=== PATIENT | male | born 1965 | race Caucasian/White ===

== ENCOUNTER → 2017-10-06 14:06 | Outpatient (REF) | payer BC, SELFPAY ==
[2017-10-06 14:36] LABS: Microalb ug/mg Crea 23.9 ug/mg Cr
== END ==
LOC: NCHCN 14:06
PROVIDERS: PCP Nurse Practitioner; Visit Provider Nurse Practitioner
DX: E11.9 Type 2 diabetes mellitus without complications (principal)
CPT/HCPCS: 82043; 82570

== ENCOUNTER 2017-11-13 15:37 | Outpatient (CLI) | payer BC, SELFPAY ==
[2017-11-13 18:45] LABS: Hemoglobin A1C 8.4 % (4.5-6.2)
[2017-11-16 17:35] LABS: Fructosamine 372 mcmol/L (200 - 285)
== END 2017-11-13 15:57 ==
PROVIDERS: PCP Nurse Practitioner; Visit Provider Internal Medicine Endocrinology, Diabetes & Metabolism
DX: E11.65 Type 2 diabetes mellitus with hyperglycemia (principal)
CPT/HCPCS: 36415; 82985; 83036

== ENCOUNTER 2018-06-28 15:05 | Outpatient (CLI) | payer BC, SELFPAY ==
[2018-06-28 17:38] LABS: Hemoglobin A1C 9.5 % (4.5-6.2)
[2018-06-29 17:05] LABS: Fructosamine 356 mcmol/L (200 - 285)
== END 2018-06-28 15:25 ==
PROVIDERS: PCP Nurse Practitioner; Visit Provider Internal Medicine Endocrinology, Diabetes & Metabolism
DX: E11.65 Type 2 diabetes mellitus with hyperglycemia (principal)
CPT/HCPCS: 36415; 82985; 83036

== ENCOUNTER 2018-07-08 09:17 | Outpatient (REF) | payer BC, SELFPAY ==
[2018-07-08 13:13] LABS: ALT 28 U/L (12-78); AST 16 U/L (15-37); Alkaline Phosphatase 71 U/L (46-116); Anion Gap 8.6 mmol/L (3-11); BUN 15 mg/dL (7-18); Bilirubin, Total 0.6 mg/dL (0.2-1.0); CO2 27.4 mmol/L (21.0-32.0); CREATININE 0.85 mg/dL (0.70-1.30); Calcium 8.8 mg/dL (8.5-10.1); Chloride 102 mmol/L (98-107); Cholesterol 104 mg/dL (50-200); Glucose 189 mg/dL (70-100); HDL Cholesterol 34 mg/dL (40-60); LDL CHOLESTEROL 54 mg/dL (<100); Potassium 4.5 mmol/L (3.5-5.1); Sodium 138 mmol/L (136-145); Total Protein 6.6 g/dL (6.4-8.2); Triglyceride 91 mg/dL (30-150)
== END 2018-07-08 09:37 ==
LOC: NCHCN 09:17
PROVIDERS: PCP Nurse Practitioner; Visit Provider Nurse Practitioner
DX: E11.9 Type 2 diabetes mellitus without complications (principal); I10 Essential (primary) hypertension; E78.5 Hyperlipidemia, unspecified
CPT/HCPCS: 80053; 80061; 83721

== ENCOUNTER 2018-11-29 15:13 | Outpatient (CLI) | payer BC, SELFPAY ==
[2018-11-29 16:15] LABS: Hemoglobin A1C 8.1 % (4.5-6.2)
[2018-11-30 23:13] LABS: Fructosamine 332 mcmol/L (200 - 285)
== END 2018-11-29 15:33 ==
PROVIDERS: PCP Nurse Practitioner; Visit Provider Internal Medicine Endocrinology, Diabetes & Metabolism
DX: E11.65 Type 2 diabetes mellitus with hyperglycemia (principal)
CPT/HCPCS: 36415; 82985; 83036

== ENCOUNTER 2019-03-24 13:33 | Outpatient (CLI) | payer BC, SELFPAY ==
[2019-03-24 14:12] LABS: Hemoglobin A1C 7.9 % (3.8-5.6)
[2019-03-25 17:02] LABS: Fructosamine 302 mcmol/L (200 - 285)
== END 2019-03-24 13:53 ==
PROVIDERS: PCP Nurse Practitioner; Visit Provider Internal Medicine Endocrinology, Diabetes & Metabolism
DX: E11.65 Type 2 diabetes mellitus with hyperglycemia (principal)
CPT/HCPCS: 36415; 82985; 83036

== ENCOUNTER 2021-03-28 18:34 | Outpatient (REF) | payer BC, SELFPAY ==
[2021-03-28 15:33] LABS: Microalb ug/mg Crea 75.7 ug/mg Cr
[2021-03-28 15:59] LABS: HCT 43.8 % (40.0-50.0); HGB 15.2 g/dL (13.5-17.5); MCH 29.4 pg (27.0-33.0); MCHC 34.7 % (32.0-36.0); MCV 84.7 fL (80-95); MPV 11.9 fL (8.0-11.0); Platelet Count 182 10^3/uL (130-400); RBC 5.17 10^6/uL (4.36-5.78); RDW 11.9 % (11.8-14.1); RDW-SD 36.2 fL; WBC 5.19 10^3/uL (4.4-10.8)
[2021-03-28 16:13] LABS: ALT 34 U/L (16-63); AST 18 U/L (15-37); Albumin 3.7 g/dL (3.4-5.0); Alkaline Phosphatase 69 U/L (46-116); Anion Gap 12.7 mmol/L (3-11); BUN 13 mg/dL (7-18); Bilirubin, Total 0.6 mg/dL (0.2-1.0); CO2 25.3 mmol/L (21.0-32.0); CREATININE 0.8 mg/dL (0.70-1.30); Calcium 8.7 mg/dL (8.5-10.1); Calculated LDL 50 mg/dL (<100); Chloride 102 mmol/L (98-107); Cholesterol 133 mg/dL (<200); Glucose 275 mg/dL (74-106); HDL Cholesterol 42 mg/dL (40-60); Potassium 4.1 mmol/L (3.5-5.1); Sodium 140 mmol/L (136-145); Total Protein 6.3 g/dL (6.4-8.2); Triglyceride 205 mg/dL (<150)
[2021-03-28 18:01] LABS: Hemoglobin A1C 12.2 % (<5.7)
[2021-03-30 15:07] LABS: Fructosamine 594 mcmol/L (200 - 285)
== END 2021-03-28 18:35 | disposition home or self-care (01) ==
LOC: NCHCN 18:34
PROVIDERS: PCP Nurse Practitioner; Visit Provider Nurse Practitioner Family
DX: E11.9 Type 2 diabetes mellitus without complications (principal); R63.4 Abnormal weight loss; I10 Essential (primary) hypertension
CPT/HCPCS: 80053; 80061; 85027; 82043; 82570; 82985; 83036

== ENCOUNTER 2022-04-09 08:52 | Outpatient (CLI) | payer BC, SELFPAY ==
[2022-04-09 09:37] LABS: Anion Gap 9.8 mmol/L (3-11); BUN 18 mg/dL (7-18); CO2 30.2 mmol/L (21.0-32.0); Calcium 9.4 mg/dL (8.5-10.1); Chloride 106 mmol/L (98-107); Estimated GFR 87.24 (mL/min/1.73m2); Glucose 92 mg/dL (74-106); Potassium 3.9 mmol/L (3.5-5.1); Sodium 146 mmol/L (136-145)
[2022-04-09 09:39] LABS: Hemoglobin A1C 10.1 % (<5.7)
[2022-04-09 17:26] LABS: Beta-Hydroxybutyrate <0.1 mmol/L (<0.4)
[2022-04-10 22:35] LABS: C-Peptide 1.9 ng/mL (1.1 - 4.4)
[2022-04-11 13:16] LABS: Fructosamine 426 mcmol/L (200 - 285)
[2022-04-18 11:40] LABS: GAD65 Ab Assay 0.08 nmol/L (<= 0.02)
== END 2022-04-09 08:53 | disposition home or self-care (01) ==
LOC: LBO 08:52
PROVIDERS: PCP Nurse Practitioner Family; Visit Provider Internal Medicine Endocrinology, Diabetes & Metabolism
DX: E11.65 Type 2 diabetes mellitus with hyperglycemia (principal)
CPT/HCPCS: 36415; 80048; 86341; 82010; 82985; 83036; 84681

== ENCOUNTER 2022-04-17 18:33 | Outpatient (REF) | payer BC, SELFPAY ==
[2022-04-17 18:23] LABS: COMMENT (LAB VIEW ONLY) 63.68 mg/dL
[2022-04-17 18:26] LABS: Microalb ug/mg Crea 231.5 ug/mg Cr
== END 2022-04-17 18:34 | disposition home or self-care (01) ==
LOC: NCHCN 18:33
PROVIDERS: PCP Nurse Practitioner Family; Visit Provider Nurse Practitioner Family
DX: E11.8 Type 2 diabetes mellitus with unspecified complications (principal)
CPT/HCPCS: 82043; 82570

== ENCOUNTER 2022-07-09 11:10 | Outpatient (CLI) | payer BC, SELFPAY ==
[2022-07-09 13:20] LABS: Anion Gap 9.2 mmol/L (3-11); BUN 17 mg/dL (7-18); CO2 27.8 mmol/L (21.0-32.0); Calcium 9.1 mg/dL (8.5-10.1); Chloride 107 mmol/L (98-107); Estimated GFR 87.24 (mL/min/1.73m2); Glucose 99 mg/dL (74-106); Potassium 3.8 mmol/L (3.5-5.1); Sodium 144 mmol/L (136-145)
[2022-07-11 09:55] LABS: C-Peptide 0.8 ng/mL (1.1 - 4.4)
== END 2022-07-09 11:11 | disposition home or self-care (01) ==
LOC: LBO 11:10
PROVIDERS: PCP Nurse Practitioner Family; Visit Provider Internal Medicine Endocrinology, Diabetes & Metabolism
DX: E11.65 Type 2 diabetes mellitus with hyperglycemia (principal)
CPT/HCPCS: 36415; 80048; 84681

== ENCOUNTER 2022-09-10 11:22 | Outpatient (CLI) | payer BC, SELFPAY ==
[2022-09-10 12:00] LABS: BUN 16 mg/dL (7-18); CREATININE 0.9 mg/dL (0.70-1.30); Calcium 8.8 mg/dL (8.5-10.1); Chloride 106 mmol/L (98-107); Estimated GFR 98.38 (mL/min/1.73m2); Glucose 118 mg/dL (74-106); Potassium 3.8 mmol/L (3.5-5.1); Sodium 140 mmol/L (136-145)
[2022-09-11 18:29] LABS: Fructosamine 261 mcmol/L (200 - 285)
== END 2022-09-10 11:23 | disposition home or self-care (01) ==
LOC: LBO 11:23
PROVIDERS: PCP Nurse Practitioner Family; Visit Provider Internal Medicine Endocrinology, Diabetes & Metabolism
DX: E11.65 Type 2 diabetes mellitus with hyperglycemia (principal)
CPT/HCPCS: 36415; 80048; 82985; 83036

== ENCOUNTER 2023-01-09 15:07 | Outpatient (CLI) | payer BC, SELFPAY ==
[2023-01-09 11:17] LABS: Hemoglobin A1C 6.8 % (<5.7)
[2023-01-09 11:47] LABS: Anion Gap 7.5 mmol/L (3-11); BUN 13 mg/dL (7-18); CO2 28.5 mmol/L (21.0-32.0); CREATININE 0.9 mg/dL (0.70-1.30); Calcium 8.9 mg/dL (8.5-10.1); Chloride 105 mmol/L (98-107); Estimated GFR 98.38 (mL/min/1.73m2); Glucose 266 mg/dL (74-106); Potassium 4.2 mmol/L (3.5-5.1); Sodium 141 mmol/L (136-145)
[2023-01-09 11:57] LABS: COMMENT (LAB VIEW ONLY) 68.44 mg/dL
[2023-01-09 11:58] LABS: Microalb ug/mg Crea 558.3 ug/mg Cr
[2023-01-11 15:30] LABS: Fructosamine 301 mcmol/L (200 - 285)
== END 2023-01-09 15:08 | disposition home or self-care (01) ==
LOC: LBO 15:09
PROVIDERS: PCP Nurse Practitioner Family; Visit Provider Internal Medicine Endocrinology, Diabetes & Metabolism
DX: E11.65 Type 2 diabetes mellitus with hyperglycemia (principal)
CPT/HCPCS: 36415; 80048; 82043; 82570; 82985; 83036

== ENCOUNTER 2023-01-14 08:18 | Day surgery (SDC) | payer BC, SELFPAY ==
--- NOTE | 2023-01-14 05:26 | W.ANESPRE ---
General Info Date of Service Date Performed: 01/14/23 Height: 5 ft 10 in Weight: 99.564 kg Body Mass Index (BMI): 31.4 Surgical Procedure: Operation Date: 01/14/23 09:50 Proposed Procedure Side Surgeon tala Patel MD Meds Allergies and Home Medications Allergies Allergy/AdvReac Type Severity Reaction Status Date / Time No Known Allergies Allergy Verified 01/14/23 08:44 Home Medication Medication Instructions Recorded amlodipine 2.5 mg tablet 2.5 mg PO DAILY 11/24/17 aspirin 81 mg tablet,delayed 81 mg PO DAILY 11/24/17 release (Adult Aspirin Regimen) atorvastatin 10 mg tablet (Lipitor) 20 mg PO DAILY 11/24/17 hydrochlorothiazide 12.5 mg capsule 25 mg PO DAILY 11/24/17 ramipril 10 mg capsule 10 mg PO BID 11/24/17 insulin degludec 85 unit subcut HS 05/28/22 insulin lispro 12 sliding scale dose subcut 05/28/22 DIRECTED semaglutide 1 mg/dose (2 mg/1.5 1 mg subcut QWEEK 12/26/22 mL) subcutaneous pen injector (TrelliSoftempic) Current Visit Medications: Current Medications Generic Name Dose Route Start Last Admin Trade Name Freq PRN Reason Stop Dose Admin Ringer's Solution 1,000 mls @ 80 mls/hr 01/14/23 06:00 IV 02/12/23 23:59 INFUSION ANJEL IV Miscellaneous Supplies 1 each 01/14/23 06:00 Iv Access IV 02/12/23 23:59 DIRECTED ANJEL Sodium Chloride 0 ml 01/14/23 06:00 Normal Saline Flush 10 Ml Syr IV 02/12/23 23:59 PRN PRN Sodium Chloride 0 ml 01/14/23 06:00 Normal Saline 10 Ml Vial IJ 02/12/23 23:59 DIRECTED PRN Sterile Water 0 ml 01/14/23 06:00 Water,Injection,Sterile 10 Ml Vial IJ 02/12/23 23:59 DIRECTED PRN PFSH Active Problems Active Problems: Problem Status Onset Code Tinnitus of left ear H93.12 Sensorineural hearing loss (SNHL) of both ears H90.3 Medical History Medical History Hyperlipidemia Benign hypertension Diabetes mellitus, type 2 Surgical History Surgical History S/P colonoscopy (~07/23/09) only got to Transverse colon Hyperplastic polyp Leiomyoma of rectum Tobacco Smoking/Tobacco Use Status: Never Alcohol Alcohol Intake: current Alcohol intake frequency: holidays/special occasions only Substance Use Substance use: Never Substance use type: does not use Vital Signs and Lab Results Vital Signs Most Recent Vital Signs in EMR: Temp Pulse Resp BP Pulse Ox 36 C L 82 16 157/93 H 99 01/14/23 09:06 01/14/23 09:06 01/14/23 09:06 01/14/23 09:06 01/14/23 09:06 Lab Results Blood Type / Crossmatch: No Data to Display Complete Blood Count: No Data to Display Complete Metabolic Panel: Sodium 141 mmol/L (136-145) 01/09/23 10:50 Potassium 4.2 mmol/L (3.5-5.1) 01/09/23 10:50 Chloride 105 mmol/L (98-107) 01/09/23 10:50 Carbon Dioxide 28.5 mmol/L (21.0-32.0) 01/09/23 10:50 BUN 13 mg/dL (7-18) 01/09/23 10:50 Creatinine 0.9 mg/dL (0.70-1.30) 01/09/23 10:50 Est GFR (CKD-EPI 2020) 98.38 (mL/min/1.73m2) 01/09/23 10:50 Calcium 8.9 mg/dL (8.5-10.1) 01/09/23 10:50 Glucose 266 mg/dL (74-106) H 01/09/23 10:50 Hemoglobin A1c 6.8 % (<5.7) H 01/09/23 10:50 Liver Function Panel: No Data to Display Coagulation Panel: No Data to Display Cardiac Panel: No Data to Display Arterial Blood Gas: No Data to Display Venous Blood Gas: No Data to Display Pancreas Panel: No Data to Display Thyroid Panel: No Data to Display Infectious Disease: No Data to Display Blood Cultures: No Data to Display Toxicology Panel: No Data to Display Anesthesia Assessment and Plan Anesthesia History Personal History: No History of Anesthesia Complications Family History: No Family History of Anesthesia Complications Exercise Tolerance Exercise Tolerance: Metabolic Equivalents>4 Cardiac & Pulmonary Exam Cardiac Exam: Normal S1/S2 Heart Sounds Pulmonary Exam: Clear Bilateral Breath Sounds Implantable Cardiac Device Does patient have a Pacemaker or an ICD?: No Airway Exam Known Difficult Airway: No Mallampati Class: 4 Mouth Opening: Narrow (< 3cm) Thyromental Distance: Greater than 3 cm Neck Range of Motion: Full ROM Neck Circumference: Normal Teeth Condition: Normal Dentition ASA Classification ASA Score: ASA 2 Emergency Case?: No NPO Status NPO Status: NPO Clears >2 hours, Solids >8 hours Anesthesia Plan Resuscitation Status: Full Code Anesthesia Technique: General Anesthesia Airway Planned: Natural Airway Monitors Used: Standard Monitors Preoperative Comments:: 57 yo male for colo. Sig PMHx: HTN (amlodipine, HCTZ), DM2 (tresiba, lispro, semaglutide), never smoker, occ EtOH.
[2023-01-14] MEDS: Lactated Ringers 1,000 ML 80 ML IV (09:02)
[2023-01-14 09:06] VITALS: BP 157/93; PULSE 82; RESP 16; TEMP 36; O2SAT 99
[2023-01-14 09:13] VITALS: BMI 31.4
--- NOTE | 2023-01-14 09:53 | BOWEL_PTH ---
PATIENT: Mitch Castro LOC: [facility] U#:[id number] AGE/SX: 57/M ROOM: RE01/14/[address]: Timothy Patel : 1965 BED: DIS: 01/14/2023 SPEC #: [id number] RECD: 01/14/23 12:44 STATUS: [facility] #: [id number] HOANG: 01/14/23 09:[address]: Timothy Patel DEPT: Surgical Specimen RECD BY: Radha Goetz ENTERED: 01/14/23 12:45 SP TYPE: Bowel OTHR DR: MAYA FOWLER, M[employer] W[employer]ER Tissues: 1 - BIOPSY BOWEL 2 - BIOPSY BOWEL 3 - BIOPSY BOWEL Procedures: GROSS AND MICRO LEVEL 4 Comments: [id number]
--- NOTE | 2023-01-14 10:13 | W.COLOREPORT ---
Date of service: 01/14/23 Time of Service: 10:13 Colonoscopy Report Procedure: PROCEDURES PERFORMED: 1. Colonoscopy 2. Hot snare polypectomy x 3 PREOPERATIVE DIAGNOSIS: Surveillance colonoscopy, colon Polyps POSTOPERATIVE DIAGNOSIS: Colon polyps, grade 1 internal hemorrhoids SURGEON: Ronel Patel MD INDICATION for procedure: The patient is a 57-year-old man without symptoms due for surveillance colonoscopy. His last colonoscopy had polyps found. No family history of colon cancer. FINDINGS: The terminal ileum was normal. In the proximal transverse colon a 5-7 mm sessile polyp was removed with hot snare technique. Further along in the transverse colon another 5-7 mm sessile polyp was removed with hot snare technique. In the rectum a small pedunculated 3-5 mm polyp was removed with hot snare technique. No diverticular disease seen. The patient does form an alpha loop around the splenic flexure. Grade 1 internal hemorrhoids noted. SURVEILLANCE interval/FOLLOW-UP: 3-10 years pending path results of the polyps. If simple adenomas then 7-10 years. If sessile serrated or villous histology, then 3 years. EBL: Minimal COMPLICATIONS: None QUALITY of prep: Excellent Procedure in detail: The patient gave written consent and was in agreement with the indications, the potential risks as well as the benefits of the procedure. He was taken to the endoscopy suite and laid in the left lateral decubitus position. A timeout was performed and anesthesia was administered which was tolerated well. I started the procedure. Digital rectal and visual examination was performed and grossly within normal limits. A well-lubricated flexible colonoscope was then introduced and passed without any notable difficulty all the way to the cecum identified by the ileocecal valve and the appendiceal orifice. The scope was then slowly withdrawn with the above-noted findings. The patient tolerated the procedure well and was taken to the PACU in hemodynamically stable condition.
--- NOTE | 2023-01-14 10:16 | W.PM.DSUDISC ---
Date of service: 01/14/23 Time of Service: 10:17 Discharge Plan Disposition Patient Disposition: Home Condition: Good Discharge Details Attending Provider: Timothy Patel Primary Care Provider: MAYA FOWLER Home Meds and New Rx's Prescriptions: No Action amlodipine 2.5 mg tablet 2.5 mg PO DAILY aspirin [Adult Aspirin Regimen] 81 mg tablet,delayed release (DR/EC) 81 mg PO DAILY insulin degludec [Tresiba FlexTouch U-100] 85 unit subcut HS insulin lispro [Humalog U-100 Insulin] 12 sliding scale dose subcut DIRECTED Rx Instructions: Sliding scale per pt. states usually 12 units Ozempic 1 mg/dose (2 mg/1.5 mL) pen injector 1 mg subcut QWEEK ramipril 10 mg capsule 10 mg PO BID Rx Instructions: qday atorvastatin [Lipitor] 10 mg tablet 20 mg PO DAILY Rx Instructions: qday hydrochlorothiazide 12.5 mg capsule 25 mg PO DAILY Rx Instructions: qday Discharge Instructions Additional Instructions: FINDINGS: Multiple polyps were removed today. Depending on the type of polyp they are under a microscope, you may need to do another colonoscopy in 3 years. Otherwise it would be 7 to 10 years. Stand Alone Forms: Colonoscopy Post Instructions Activity:: Activity as Tolerated Diet:: As Tolerated
[2023-01-14 10:18] VITALS: BP 139/91; PULSE 83; RESP 16; TEMP 36.5; O2SAT 97
--- NOTE | 2023-01-14 10:21 | W.ANESPOSTOP ---
Postoperative Evaluation Date, Time and Location Date Performed: 01/14/23 Time Performed: 10:21 Patient Location: Day Surgery Unit Vital Signs Most Recent Imported Vital Signs: Most Recent Vital Signs Temp Pulse Resp BP Pulse Ox 36.5 C 83 16 139/91 H 97 01/14/23 10:18 01/14/23 10:18 01/14/23 10:18 01/14/23 10:18 01/14/23 10:18 Pain Score Most Recent Pain Score: Most Recent Pain Score Pain Level 0 01/14/23 10:18 Assessment Mental Status: Awake (Alert & Oriented to Patient Baseline) Airway and Respiratory Function: Patent airway with normal (patient baseline) respiratory exam Cardiovascular Function: Hemodynamically Stable Hydration Status: Adequately Hydrated Nausea & Vomiting: No Nausea or Vomiting Pain: Pt. Denies Any Pain Peripheral Nerve Block: Patient did not receive a nerve block
[2023-01-14 10:45] VITALS: BP 152/94; PULSE 85; RESP 16; TEMP 36.6; O2SAT 97
== END 2023-01-14 08:19 | disposition home or self-care (01) ==
PROVIDERS: PCP Nurse Practitioner Family; Visit Provider Student in an Organized Health Care Education/Training Program
PROC: 0DJD8ZZ Inspection of Lower Intestinal Tract, Via Natural or Artificial Opening Endoscopic (ICD-10-PCS; CPT 45378; principal; 2023-01-14 09:45)
DX: Z12.11 Encounter for screening for malignant neoplasm of colon (principal); D12.8 Benign neoplasm of rectum; K64.0 First degree hemorrhoids; Z86.010 Personal history of colon polyps; I10 Essential (primary) hypertension; E11.9 Type 2 diabetes mellitus without complications; D12.3 Benign neoplasm of transverse colon
CPT/HCPCS: 45385; 00123; 88305; J2001

== ENCOUNTER 2023-04-30 05:48 | Outpatient (CLI) | payer BC, SELFPAY ==
[2023-04-30 14:23] LABS: Hemoglobin A1C 7.6 % (<5.7)
[2023-04-30 14:36] LABS: Calculated LDL 46 mg/dL (<100); Cholesterol 125 mg/dL (<200); HDL Cholesterol 38 mg/dL (40-60); Triglyceride 209 mg/dL (<150)
[2023-04-30 15:00] LABS: Anion Gap 9.2 mmol/L (3-11); BUN 20 mg/dL (7-18); CO2 27.8 mmol/L (21.0-32.0); Calcium 8.6 mg/dL (8.5-10.1); Chloride 108 mmol/L (98-107); Glucose 332 mg/dL (74-106); Potassium 4.7 mmol/L (3.5-5.1); Sodium 145 mmol/L (136-145)
[2023-05-02 09:17] LABS: Fructosamine 270 mcmol/L (200 - 285)
== END 2023-04-30 05:49 | disposition home or self-care (01) ==
LOC: LBO 05:48
PROVIDERS: Internal Medicine Endocrinology, Diabetes & Metabolism; PCP Nurse Practitioner Family; Visit Provider Nurse Practitioner Family
DX: E11.65 Type 2 diabetes mellitus with hyperglycemia (principal); E78.5 Hyperlipidemia, unspecified
CPT/HCPCS: 36415; 80048; 80061; 82985; 83036

== ENCOUNTER 2023-09-16 03:50 | Outpatient (CLI) | payer BC, SELFPAY ==
--- OUTSIDE RECORDS SUMMARY | 2023-09-16 03:52 | XMS_ITS | Data Portability ---
Author Organization [place] - [facility] [place] [address] Care Team Providers Care Boiling Off Winder Name Role Phone MAYA FOWLER Primary Care Provider Assessment No assessment recorded. Plan of Treatment Reminders Order Date Submit Date Provider Last Modified By Organization Details Last Modified Time Details Appointments Follow Up 30 2023 01:30P M Maya Fowler Not available Not available Not available Lab None recorded . Referral None recorded . Procedures None recorded . Surgeries None recorded . Imaging None recorded . Medication Orders None recorded . Patient TargetsNo targets recorded. Patient Instructions Encounter Date Encounter Id Patient Instructions Last Modified By Organization Details Last Modified Time 04/22/2023 [id number] 6 month follow u p. Follow up with endocrinology as scheduled. If blood pressure remains elevated, consider increase amlodipine to 5 mg daily. I will send cholesterol testing labs to [facility] to complete this Thursday. Call with questions. Recommend signing up for the patient portal - email sent to your [place] address. Not available 04/25/2023 10:30:41 Reason for Referral None Reported. Results Created Date Observation Date Name Description Value Unit Range Abnormal Flag LastModifiedBy Organization Detail LastModifiedTime 04/30/19 24 04/30/2023 HEMOG LOBIN A1C hemoglobin A1C 7.6 % <5.7 high Not Available Camron alfonso [address] [place], [address] 04/30/2023 14:47:20 04/30/19 24 04/30/2023 LIPID 2 cholesterol 125 mg/dL <[address] [facility] ([facility]) [address] [place] [address] [place], [address], 04/30/2023 14:49:22 04/30/19 24 04/30/2023 LIPID 2 triglyceride 209 mg/dL <150 high Not Available [facility] ([facility]) [address] [place] [address] [place], [address], 04/30/2023 14:49:22 04/30/19 24 04/30/2023 LIPID 2 HDL cholesterol 38 mg/dL 40-[address] [facility] ([facility]) [address] [place] [address] [place], [address], 04/30/2023 14:49:22 04/30/19 24 04/30/2023 LIPID 2 calculated LDL 46 mg/dL <[address] [facility] ([facility]) [address] [place] [address] [place], [address], 04/30/2023 14:49:22 04/30/19 24 04/30/2023 LASIC METAB OLIC PANEL calcium 8.6 mg/dL 8.5-10 .1 normal Not Available [address] [place], [address] 04/30/2023 15:03:28 04/30/19 24 04/30/2023 LASIC METAB OLIC PANEL glucose 332 mg/dL 74-106 high Not Available [address] [place], [address] 04/30/2023 15:03:28 04/30/19 24 04/30/2023 LASIC METAB OLIC PANEL BUN 20 mg/dL 7-18 high Not Available [facility] [address] [place], [address] 04/30/2023 15:03:28 04/30/19 24 04/30/2023 LASIC METAB OLIC PANEL creatinine 1.0 mg/dL 0.70-1 .30 normal Not Available [address] [place], [address] 04/30/2023 15:03:28 04/30/19 24 04/30/2023 LASIC METAB OLIC PANEL estimated GFR 86.70 mL/min /1.73m 2 Not Available [address] [place], [address] 04/30/2023 15:03:28 04/30/19 24 04/30/2023 LASIC METAB OLIC PANEL sodium 145 mmol/ L 136-14 5 normal Not Available [address] [place], [address] 04/30/2023 15:03:28 04/30/19 24 04/30/2023 LASIC METAB OLIC PANEL potassium 4.7 mmol/ L 3.5-5. 1 normal Not Available [address] [place], [address] 04/30/2023 15:03:28 04/30/19 24 04/30/2023 LASIC METAB OLIC PANEL chloride 108 mmol/ L 98-107 high Not Available [address] [place], [address] 04/30/2023 15:03:28 04/30/19 24 04/30/2023 LASIC METAB OLIC PANEL CO2 27.8 mmol/ L 21.0-3 2.0 normal Not Available [address] [place], [address] 04/30/2023 15:03:28 04/30/19 24 04/30/2023 LASIC METAB OLIC PANEL anion gap 9.2 mmol/ L 3-11 normal Not Available [address] [place], [address] 04/30/2023 15:03:28 04/30/19 24 05/02/2023 FRUCT OSAMI NE fructosamine 270 mcmol /L 200 - 285 Not Available [address] [place], [address] 05/04/2023 08:47:49 04/30/19 24 04/30/2023 HEMOG LOBIN A1C hemoglobin A1C 7.6 % <5.7 high Not Available [address] [place], [address] 05/07/2023 05:11:32 04/30/1904/30/2023 LIPID 2 cholesterol 125 mg/dL <200 Not Available [facility] [place] [address] [facility], [address] 05/07/2023 05:14:32 04/30/19 24 04/30/2023 LIPID 2 triglyceride 209 mg/dL <150 high Not Available [facility] [address] [place] [address] [place], [address] 05/07/2023 05:14:32 04/30/19 24 04/30/2023 LIPID 2 HDL cholesterol 38 mg/dL 40-60 low Not Available Elver polo [place] [address] [facility], [address] 05/07/2023 05:14:32 04/30/19 24 04/30/2023 LIPID 2 calculated LDL 46 mg/dL <100 Not Available Camron alfonso [address] [place], [address] 05/07/2023 05:14:32 Result Notes None recorded. Problems Name Status Onset Date Resolution Date Notes Provider Name and Address Organization Details Recorded Time Hyperlipidemi a Active 2002 GLEN denton [facility], [facility]. 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 4 13:29:51 Essential hypertension Active 2002 GLEN denton [facility]. 4 13:30:03 Seasonal allergic rhinitis Active 2004 GLEN denton [facility] 4 13:30:32 Retinal disorder Active 2009 GLEN denton [facility]. 4 13:30:26 Erectile dysfunction Active 2016 GLEN denton [facility]. 4 13:29:58 Facial nerve disorder Active 2019 GLEN denton [facility]. 4 13:30:10 Abnormal weight loss Completed 202105/26/2021 03/28/2021 - Comments only - Maya PEREZ - Above. Problem Code: R63.4; Problem Code Type: ICD-10; Not Available [facility] 3 05:25:43 Counseling Completed 202105/26/2021 03/28/2021 - Comments only - Maya PEREZ - Reviewed medical history. Reviewed current medications. See below for specifics on medication refills, current care plan. Focus of today's treating diabetes. He is up-to-date with his Covid booster. We will discuss colon cancer screening and subsequent follow-up visit. Problem Code: Z71.89; Problem Code Type: ICD-10; Not Available [facility] 3 05:25:44 Sensorineural hearing loss Active 2021 GLEN denton, [facility]. 4 13:30:41 Tinnitus of left ear Active 2021 GLEN denton, [facility] 4 13:30:49 Adult health examination Completed 202204/22/2023 CHRIS MAGALLANES [address], [place], [address] , [facility] 4 15:18:30 Pain of joint of knee Active 2022 GLEN denton [facility]. 4 13:30:21 Screening for malignant neoplasm of colon Completed 202204/22/2023 CHRIS MAGALLANES [address], [place], [address] , [facility] 4 15:18:24 Pain of left shoulder joint Completed 201604/05/2018 Problem Code: M25.512; Problem Code Type: ICD-10; Not Available [facility] 3 05:25:46 Bilateral hearing loss Completed 202111/05/2022 03/28/2021 - Comments only - Maya Mayur [employer] - Mild bilateral hearing loss. Suspect noise exposure conductive loss. Subjective tinnitus to the left ear. Started in 2019 - see visit notes 05/05/2019, related to facial nerve disorder? Will start with audiology referral and hearing check. Problem Code: H91.93; Problem Code Type: ICD-10; Not Available [facility] 3 05:25:51 Hypertensive disorder Completed 200211/05/2022 Not Available [facility] 3 05:25:51 Type 2 diabetes mellitus without complication Completed 200511/05/2022 06/01/2021 - Comments only - Maya Fowler [employer] - A1c 2 months ago was above 12. Nonfasting blood glucose today was 431 today. Mitch has continued with metformin, glimepiride, and 45 units of Lantus nightly. He does have a continuous blood glucose monitor at home, though did not present with his meter today. He reports blood glucose levels are varying, though unable to provide specifics today. Overall, he does feel symptoms have improved over the past 2 months, including improvement of urinary pattern. Weight is stabilized. Appetite is improved. No longer experiencing nausea and vomiting. Prioritize follow-up with his endocrinologi st. Can help facilitate the process. See instructions below. He was previously well-establis hed with endocrinology , and would like to continue with endocrinology at this time. Reviewed Levemir use, may consider divided dose, may consider increasing up to 50 mg however, he will need to monitor his blood glucose closely. At this time, I was not able to review his home blood glucose levels. Our diabetes team has made several attempts to follow-up with Mitch, without success. Mitch would like to prioritize returning to his endocrinologi st in [place]. Problem Code: E11.9; Problem Code Type: ICD-10; Not Available [facility] 3 05:25:53 Seasonal allergy Completed 200411/05/2022 Not Available [facility] 3 05:25:53 Diabetes mellitus Completed 200511/05/2022 Not Available [facility] 3 05:25:54 Nonproliferat marilu retinopathy due to diabetes mellitus Completed 200911/05/2022 Problem Code: 362.; Problem Code Type: ICD-9; Not Available [facility] 3 05:25:54 Problem Notes None recorded. Medical Equipment None Reported. Allergies Allergen ID Allergen Name Allergen Category Reaction Reaction Severity Criticality Documentation Date Start Date Code Code System Note Provider Name and Address Organization Details Recorded Time house dust mite environme nt Not available Not available Not available 12/19/20222011 Aller gyNam e: 'DUST MITES '; Not Available [facility] 3 16:14:48 Medications Name Sig Start Date Stop Date Status Note LastModified by Organization Details LastModified Time cyclobenz aprine 10 mg tablet 1 q hs 12/26 completed Not Available Not Available Not Available metformin 500 mg tablet Take 2 tablet by mouth twice a day 11/13 completed Not Available Not Available Not Available atorvasta tin 20 mg tablet TAKE ONE TABLET BY MOUTH EVERY EVENING 2023 active Not Available Not Available Not Avai lable FreeStyle Lancets 28 gauge test every day 2011 active Not Available Not Available Not Avai lable Medrol (Vicente) 4 mg tablets in a dose pack 1 TAB DIRECTED 10/20 completed Not Available Not Available Not Available Viagra 50 mg tablet 1 04/22 completed Not Available Not Available Not Available amlodipin e 2.5 mg tablet TAKE ONE TABLET BY MOUTH TWICE A DAY active Not Available Not Available No t Available metformin 1,000 mg tablet 1 tablet by mouth twice a day 07/16 completed RX ENDO Not Available Not Available Not Available glimepiri de 4 mg tablet Take 1 tablet by mouth twice a day 02/19 completed Not Available Not Available Not Available Actos 15 mg tablet 1 qd 04/30 completed Not Available Not Available Not Available aspirin 81 mg tablet Take 1 tablet by mouth once a day 2016 active Not Available Not Available Not Avai lable hydrochlo rothiazid e 25 mg tablet TAKE ONE TABLET BY MOUTH EVERY DAY active Not Available Not Available No t Available Aspir-81 mg tablet,de layed release Take 1 tab by mouth daily 2014 active Not Available Not Available Not Avai lable Viagra 100 mg tablet Take 1 by mouth prior to intercou rse as needed 2013 active Not Available Not Available Not Avai lable naproxen 500 mg tablet 1 bid 04/22 completed Not Available Not Available Not Available ramipril 10 mg capsule TAKE TWO CAPSULES BY MOUTH EVERY DAY 2023 active Not Available Not Available Not Avai lable Novolog FlexPen U-100 Insulin aspart 100 unit/mL (3 mL) subcutane ous Inject 12 unit subcutan eously before each meal active prescrib ed by [facility] endocrin e Not Available Not Available Not Available Levitra 10 mg tablet 1TAB qd 04/22 completed Not Available Not Available Not Available Cialis 10 mg tablet Take 1 tablet by mouth at 1 hour prior to anticipa ting intercou rse prn may increase to 2 tablets/ max dose 24hr 07/16 completed Not Available Not Available Not Available Cialis 20 mg tablet 1 use as needed 04/22 completed Not Available Not Available Not Available Novofine Autocover 30 gauge x 1/3 needle USE 1 PEN NEEDLE UNDER THE SKIN TWO TIMES A DAY 04/24 completed Not Available Not Available Not Available Levemir U-100 Insulin 100 unit/mL subcutane ous solution Inject 50 unit subcutan eously once a day as directed 09/10 completed Not Available Not Available Not Available NovoFine 30 30 gauge x 1/3 needle use to inject insulin twice daily E11.9 2013 active Not Available Not Available Not Avai lable FreeStyle Lite Strips test as directed 2011 active Not Available Not Available Not Avai lable Lantus Solostar U-100 Insulin 100 unit/mL (3 mL) subcutane ous pen Inject 45 unit subcutan eously every night 03/28 completed Not Available Not Available Not Available Lantus Solostar U-100 Insulin q hs 08/18 completed Not Available Not Available Not Available ramipril 10 mg tablet 2TAB qd 2012 active Not Available Not Available Not Avai lable Humalog KwikPen (U-100) Insulin 100 unit/mL subcutane ous INJECT 12 UNITS UNDER THE SKIN THREE TIMES A DAY BEFORE MEALS active Not Available Not Available No t Available Victoza 2-Vicente 0.6 mg/0.1 mL (18 mg/3 mL) subcutane ous pen injector INJECT 1.8MG PER DAY 07/06 completed increase dose from 0.6 mg daily to 1.2 mg daily 7 Not Available Not Available Not Available Levemir FlexTouch U-100 Insulin 100 unit/mL (3 mL) subcutane ous pen INJECT 45 UNITS SUBCUTAN EOUSLY ONCE A DAY DIRECTED 02/19 completed Not Available Not Available Not Available Bydureon 2 mg/0.65 mL subcutane ous pen injector 2 mg by subcutan ous injectio n once a week 2018 active outside provider : endocrin ologist Not Available Not Available Not Available Tresiba FlexTouch U-200 insulin 200 unit/mL (3 mL) subcutane ous pen INJECT 70-80 UNITS UNDER THE SKIN ONCE DAILY; TITRATE DOSE INSTRUCT ED active Not Available Not Available No t Available FreeStyle Precision Akira Strips for use with freestyl e karen meter [address] Hightower Not Available Not Available Not Available BD Julia 2nd Gen Pen Needle 32 gauge x 5/32 USE WITH INSULIN BEFORE EACH MEAL active Not Available Not Available No t Available FreeStyle Karen 2 Sensor kit APPLY 1 KIT DIRECTED AND CHANGE EVERY 14 DAYS DIRECTED OR NEEDED IF SENSOR FALLS OFF PREMATUR BERNADINE active Not Available Not Available No t Available FreeStyle Karen 2 [place] USE ONE DIRECTED active Not Available Not Available No t Available Ozempic 1 mg/dose (4 mg/3 mL) subcutane ous pen injector INJECT 1MG UNDER THE SKIN ONCE WEEKLY 2023 active Not Available Not Available Not Avai lable Mounjaro 5 mg/0.5 mL subcutane ous pen injector INJECT 5MG UNDER THE SKIN ONCE WEEKLY active Not Available Not Available No t Available Mounjaro 2.5 mg/0.5 mL subcutane ous pen injector INJECT 2.5MG UNDER THE SKIN ONCE WEEKLY FOR 4 WEEKS. THEN INCREASE TO 5MG active Not Available Not Available No t Available Ozempic 0.25 mg or 0.5 mg (2 mg/3 mL) subcutane ous pen injector INJECT 0.5MG UNDER THE SKIN ONCE WEEKLY 04/21 completed Not Available Not Available Not Available Vitals Date Recorded Body height Body mass index (BMI) Body weight Body temperature Oxygen saturation Oxygen saturation in Arterial blood by Pulse oximetry Heart rate Systolic blood pressure Diastolic blood pressure Provider Name and Address Organization Details Last Updated DateTime 177.8 cm 31.6 kg/m2 75897.3 2 g 98.4 [degF] 98 % 98 % 90 /min 158 mm[Hg] 91 mm[Hg] Bushra Wilson MA [facility] 14:44:10 Date Recorded Systolic blood pressure Diastolic blood pressure Provider Name and Address Organization Details Last Updated DateTime 04/22/2023 142 mm[Hg] 88 mm[Hg] CHRIS MAGALLANES [address], [place], [address], [facility] 04/22/2023 15:19:16 Social History Question Answer Notes LastModified by Organizat ion Details LastModified Time Tobacco Smoking Status Never Smoker Bushra Wilson MA [facility], [facility] 04/22/2023 14:43:07 Has Tobacco Cessation Counseling Been Provided? No Information not available 04/22/2023 Do You Or Have You Ever Used Any Other Forms Of Tobacco Or Nicotine? No [email or web address] Information not available 04/22/2023 Sex: Male Functional Status None recorded. Mental Status None recorded. Family History Relationship Description Onset Age of this Age Resolved Age Notes Father Family history of malignant neoplasm prostate Mother Family history of malignant neoplasm brain tumor Mother Family history of diabetes mellitus type 1 Brother Family history of diabetes mellitus type 1 Maternal Grandfather Family history of diabetes mellitus type 1 Sister Family history of diabetes mellitus type 1 Sister Family history of breast cancer 1 gene mutation Notes:*Problem: Family Histo ry of: Other: Family history of prostate cancer, lymphoma. CAD mother's side. DM 2 grandfather, mother, sister. Sisters: Breast Cancer, Eye Cancer, Mother, brain tumor Medical History No medical history recorded. Immunizations Vaccine Type Date Status Provider Name and Address Organization Details Recorded Time Td (adult), 2 Lf tetanus toxoid, preservative free, adsorbed 07/06/2018 completed Not Available [facility] 12/19/2022 06:18:57 Tdap 08/01/2008 completed Not Available [facility] 06:18:57 Novel [id number], all formulations 02/14/2009 completed Not Available [facility] 12/19/2022 06:18:57 Td(adult) unspecified formulation 10/07/2001 completed Not Available [facility] 12/19/2022 06:18:57 Influenza, split virus, trivalent, preservative 01/24/2016 completed Not Available [facility] 12/19/2022 06:18:57 Influenza, split virus, quadrivalent, PF 12/28/2018 completed Not Available [facility] 12/19/2022 06:18:57 Influenza, split virus, quadrivalent, preservative 01/05/2017 completed Not Available [facility] 12/19/2022 06:18:57 zoster recombinant 07/16/2022 completed Not Available [facility] 12/19/2022 06:18:58 Pneumococcal conjugate PCV20, polysaccharide [id number] conjugate, adjuvant, PF 07/16/2022 completed Not Available [facility] 12/19/2022 06:18:58 pneumococcal polysaccharide PPV23 11/15/2002 completed Not Available [facility] 2022 06:18:58 influenza, unspecified formulation 10/14/2013 completed Not Available [facility] 12/19/2022 06:18:58 influenza, unspecified formulation 11/01/2009 completed Not Available [facility] 12/19/2022 06:18:58 influenza, unspecified formulation 11/09/2008 completed Not Available [facility] 12/19/2022 06:18:58 influenza, unspecified formulation 11/11/2007 completed Not Available [facility] 12/19/2022 06:18:58 influenza, unspecified formulation 11/20/2011 completed Not Available [facility] 12/19/2022 06:18:58 influenza, unspecified formulation 12/02/2012 completed Not Available [facility] 12/19/2022 06:18:58 influenza, unspecified formulation 01/08/2006 completed Not Available [facility] 12/19/2022 06:18:58 zoster recombinant 10/14/2022 completed Not Available [facility] 02/20/2023 05:31:47 Past Encounters Encounter ID Performer Location Encounter Start Date Encounter Closed Date Diagnosis/Indication Diagnosis SNOMED-CT Code [id number] CHRIS MAGALLANES [facility] [address] [place] [address] 04/22/2023 14:22:10 04/22/2023 15:21:28 Disorder due to type 2 diabetes mellitus 138382062 Essential hypertension 41045102 Hyperlipidemia 43790088 Health Concerns Section Related Observation LastModified by Organization Detai ls LastModified Time None Recorded Concern Status LastModified by Organization Details LastModified Time None Recorded Advance Directives Directive None Recorded Payers Encounter Date Sequence Insurance Name Policy Number Policy Golden Covered Member ID Golden Member ID Guarantor Name 04/22/2023 1 [place] [employer] [place] [facility] (MEDICARE SUPPLEMENT) Mitch Castro [id number] Mitch Castro Notes Date Note Type Note Provider Name and Address Organization Details Recorded Time 04/22/2023 text/html HPI Notes: Mitch presents to [facility] today for routine chronic care follow-up. Medical history includes diabetes and hypertension. 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 Recent colonoscopy, 7-year recall. CHRIS MAGALLANES [address], [place], [address], [place] [facility]. 04/25/2023 10:32:27
--- OUTSIDE RECORDS SUMMARY | 2023-09-16 03:52 | XMS_ITS | Encounter Summary ---
Author Organization [facility] Address [address] [place] [address] Care Team Providers Care Customer Retention Specialist Name Role Phone Unknown, Provider Primary Care Provider [phone] Encounter Details Date Type Department Care Team ([facility] st Contact Info) Description 01/14/2023 Lab Requisition [facility] Pathology & Laboratory Medicine - [facility] [address] [place] [address] Timothy Patel MD [address] [place] [id number] Encounter for other general examination Social History Tobacco Use Types Packs/Day Years Used Date Smoking Tobacco: Never Assessed Sex and Gender Information Value Date Recorded Sex Assigned at Not on file Gender Identity Not on file Sexual Orientation Not on file documented as of this encounter Plan of Treatment Not on file documented as of this encounter Procedures Procedure Name Priority Date/Time Associated Diagnosis Comments SURGICAL PATHOLOGY Today 01/14/2023 9: 53 EST Encounter for other general examination documented in this encounter Results * SURGICAL PATHOLOGY (01/14/2023 9:53 EST) Note to Patient The following pathology results have been interpreted by your pathologist and may be available to you before your health provider has had the opportunity to review them. Please allow time for your provider to receive these results and explore management options, if applicable. 01/16/2023 18:36 EST [facility] Final Diagnosis A. COLON, TRANSVERSE, POLYP, BIOPSY: - Fragments tubular adenoma. - Deeper levels have been examined. B. COLON, TRANSVERSE, POLYP, BIOPSY: - Tubular adenoma.. C. RECTUM, POLYP, BIOPSY: - Tubular adenoma. - Deeper levels have been examined. 01/16/2023 18:36 [facility] Attestation By the signature below, the attending physician certifies that they have 1) personally conducted a gross and/or microscopic examination of the described specimen(s), and/or personally interpreted the results of laboratory testing of the described specimen(s), and 2) personally rendered or confirmed the above diagnosis. 01/16/2023 18:36 [facility] at 1836 Clinical History HX polyps 01/16/2023 18:36 [facility] Gross Description A. Received in formalin labelled with proper patient identification (initials F, J) and transverse colon polyp are 11 soft tissue fragments (0.1 x 0.1 x 0.1 cm to 0.9 x 0.1 x 0.1 cm). Entirely submitted in A1-A3. B. Received in formalin labelled with proper patient identification (initials F, J) and transverse colon polyp are several rubbery sanchez-brown tissue fragments (0.2 x 0 1 x 0.1 cm to 0.6 x 0.3 x 0.1 cm). Entirely submitted in B1. C. Received in formalin labelled with proper patient identification (initials F, J) and rectal polyp is a single rubbery sanchez and focally brown speckled tissue fragment (1.9 x 0.3 x 0.2 cm). Entirely submitted in C1. Cee Vera 01/15/2023 8:55 01/16/2023 18:36 [facility] Performing Lab [facility] 01/16/2023 18:36 [facility] Scanned Images 01/16/2023 18:36 [facility] Tissue SPECIMEN FROM RECTUM / Unknown 01/14/2023 9:53 EST 01/14/2023 16:36 EST Tissue specimen (specimen) TRANSVERSE COLON STRUCTURE / Unknown 01/14/2023 9:53 EST 01/14/2023 16:36 EST Tissue specimen (specimen) SPECIMEN FROM RECTUM / Unknown 01/14/2023 9:53 EST 01/14/2023 16:36 EST Timothy Patel MD PATHOLOGY ORDERABLES [facility] [address] [place] [address] documented in this encounter Visit Diagnoses Diagnosis Encounter for other general examination documented in this encounter Care Teams Customer Retention Specialist Relationship Specialty Start Date End Date Unknown, Provider, PCP - General 07/23/09 documented as of this encounter
--- OUTSIDE RECORDS SUMMARY | 2023-09-16 03:52 | XMS_ITS | Encounter Summary ---
Author Organization [facility] Address [address] [place] [address] Care Team Providers Care Artificial Intelligence Specialist Name Role Phone Unknown, Provider Primary Care Provider [phone] Encounter Details Date Type Department Care Team ([facility] st Contact Info) Description 04/09/2022 Lab Requisition [facility] Pathology & Laboratory Medicine - [facility] [address] [place] [address] Outr Resulting Lab, Provider Social History Tobacco Use Types Packs/Day Years Used Date Smoking Tobacco: Never Assessed Sex and Gender Information Value Date Recorded Sex Assigned at Not on file Gender Identity Not on file Sexual Orientation Not on file documented as of this encounter Plan of Treatment Not on file documented as of this encounter Procedures Procedure Name Priority Date/Time Associated Diagnosis Comments BETA HYDROXYBUTYRATE Routine 04/09/2022 9:07 EST documented in this encounter Results * BETA HYDROXYBUTYRATE (04/09/2022 9:07 EST) Beta Hydroxybutyrate <0.1 <0.4 mmol/L 04/09/2022 17:20 EST [facility] Blood VENOUS BLOOD / Unknown 04/09/2022 9:07 EST 04/09/2022 16:50 EST Provider Outr Resulting Lab CHEMISTRY & BLOOD GAS ORDERABLES [facility] [address] [place] [address] documented in this encounter Visit Diagnoses Not on filedocumented in this encounter Care Teams Artificial Intelligence Specialist Relationship Specialty Start Date End Date Unknown, Provider, PCP - General 07/23/09 documented as of this encounter
--- OUTSIDE RECORDS SUMMARY | 2023-09-16 03:52 | XMS_ITS | Encounter Summary ---
Author Organization [facility] [place] [address] Care Team Providers Care Medical Receptionist Biller Name Role Phone Claudia Johnson RAHUL Primary Care Provider [phone] Reason for Visit * Reason Comments Diabetes Encounter Details Date Type Department Care Team (Late st Contact Info) Description 12/02/2012 3:00 PM EDT Office [place] [address] [address] [facility] [place] [address] Type II or unspecified type diabetes mellitus without mention of complication, uncontrolled (Primary Dx) Discharge Disposition: Home Social History Tobacco Use Types Packs/Day Years Used Date Smoking Tobacco: Never Smokeless Tobacco: Never Sex and Gender Information Value Date Recorded Sex Assigned at Not on file Gender Identity Not on file Sexual Orientation Not on file documented as of this encounter Last Filed Vital Signs Vital Sign Reading Time Taken Comments Blood Pressure 143/97 12/02/2012 3:03 PM EDT Pulse 93 12/02/2012 3:03 PM EDT Temperature - - Respiratory Rate - - Oxygen Saturation - - Inhaled Oxygen Concentration - - Weight 104.2 kg (229 lb 12.8 oz) 12/02/2012 3:03 PM EDT Height - - Body Mass Index - - documented in this encounter Patient Instructions * Patient Instructions* Beatrice Celestin APRN - 12/02/2012 3:39 PM EDT Will consider stopping onglyza and using victoza Added glimepiride 4mg before breakfast and evening meals Take 1/2 (2mg) if glucose is under 100 Omit if glucose is under 90 (and not about to eat carbohydrates) Daily physical activity Attempt to lose 5-10 lbs documented in this encounter Progress Notes * Beatrice Celestin APRN - 12/02/2012 3:53 PM EDT DATE OF VISIT: 12/02/2012 REASON FOR VISIT: New patient to endocrinology for type 2 DM, recently in poor control. Also, follow up hypertension, close to goal; hyperlipidemia; and overweight. BRIEF HISTORY: Presents and states the hardest part of having diabetes is doing what I need to do every day. DATE OF DIAGNOSIS OF DIABETES: Approximately 2006 at time of routine lab for his job. FAMILY HISTORY: Maternal grandfather had DM. Father in his 80's, had cancer. Mother is alive, has Alzheimer's. Sister had gestational diabetes. PREVENTION STRATEGIES: He does take a statin and an ISREAL inhibitor, does have an annual dilated eye exam, will check when his last dentist appointment was. REVIEW OF SYSTEMS: Depression and Mood: Discusses some higher stress at times with fatherhood and with his two jobs. Eyes: No recent vision changes. No headaches, no chest pain, no shortness of breath. No GI symptoms. Appetite is very good. Sleep pattern is good. Skin: No rashes, no sores. Extremities are okay. DIABETES REGIMEN: Lantus SoloSTAR pen 65 units in p.m., Glucophage 1000 mg twice a day, Onglyza 5 mg daily. PHYSICAL EXAMINATION: Appearance: He appears in excellent health. He is overweight, 229 pounds, he states he has gained 15 pounds since this summer; blood pressure 143/97. Eyes: No retinopathy by green light exam. Neck: No thyromegaly or lymphadenopathy. Heart: Regular rate and rhythm, no murmurs. Lungs: Clear to auscultation. Feet: He declines a foot exam today in order to have time to group home counselor regarding regimen changes. LABORATORY DATA: He states hemoglobin A1c 8.2% approximately two months ago at PCP office. SBGM: Has not been checking glucose levels. IMPRESSION AND PLAN: Diabetes mellitus type 2, in fair/poor overall control with recent weight gain. Discussed stopping Onglyza and using Victoza. Discussed stopping present regimen and using mix insulin with Glucophage or continuing what he is already doing and adding glimepiride. Will add glimepiride 4 mg before breakfast and before evening meal to his present regimen. He will omit glimepiride if glucose levels are under 90; and he will only take half a dose, 2-mg tablet if glucose levels are under 100. He states he is determined to try to lose the 15 pounds that he has gained. He states he is somewhat of an emotional eater. We reviewed his 24-hour meal plan. Breakfast is cereal or toast. Lunch, he often has crackers or nuts. Evening meal is pork chop, potato, and vegetable. Evening snack is an apple. 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 At home are his three children and his . IMMUNIZATION UPDATE: Flu vaccine given by Braulio Koo LPN. He is going to return to endocrinology if hemoglobin A1c is not closer to 7.0%. This was a 42-minute office visit with 41 minutes spent counseling face to face with the patient in the management of glucose levels, discussing the available diabetes regimen options, reviewing a healthy meal plan with suggestions for weight loss, he is going to try to eat smaller portions and less calories daily, and he is going to check glucose levels at least once a day either before breakfast or before evening meal. documented in this encounter Plan of Treatment Not on file documented as of this encounter Visit Diagnoses Diagnosis Type II or unspecified type diabetes mellitus without mention of complication, uncontrolled- Primary documented in this encounter Care Teams Medical Receptionist Biller Relationship Specialty Start Date End Date Claudia Johnson APRN [facility] [address] [place] [address] PCP - General 01/01/10 documented as of this encounter
--- OUTSIDE RECORDS SUMMARY | 2023-09-16 03:52 | XMS_ITS | Clinical Summary ---
Author Organization [facility] Address [facility] [place] [address] Care Team Providers Care Credit Card Associate Name Role Phone Claudia Johnson RAHUL Primary Care Provider [phone] Allergies No known active allergies Medications Medication Sig Dispensed Refills Start Date End Date Status ramipril (ALTACE) 10 mg capsule 05/28/2006 Active hydrochlorothiazid e (HYDRODIURIL) 25 mg tablet 05/28/2006 Active Mometasone (NASONEX) 50 mcg/Actuation [employer] 05/28/2006 Active sildenafil (VIAGRA) 50 mg tablet 05/28/2006 Active cetirizine (ZYRTEC) 10 mg tablet 05/28/2006 Active metFORMIN (GLUCOPHAGE) 500 mg tablet Take 1,000 mg by mouth 2 times daily (with meals). Active Saxagliptin (ONGLYZA) 5 mg Tab Take 5 mg by mouth daily. Active amlodipine (NORVASC) 2.5 mg tablet Take 2.5 mg by mouth daily. Active atorvastatin (LIPITOR) 10 mg tablet Take 10 mg by mouth daily. Active insulin glargine (LANTUS SOLOSTAR) pen injection Inject 45-65 Units subcutaneously nightly. Active aspirin 81 mg EC tablet Take 81 mg by mouth daily. Active Active Problems Problem Noted Date Diagnosed Date Type II or unspecified type diabetes mellitus without mention of complication, uncontrolled 12/02/2012 Hypertension 12/02/2012 Hyperlipidemia 12/02/2012 Immunizations Name Administration Dates Next Due Influenza PF, Split 12/02/2012 Family History Medical History Relation Comments Cancer Father Diabetes Maternal Grandfather Relation Status Comments Father Maternal Grandfather Mother Alive Sister Alive Social History Tobacco Use Types Packs/Day Years Used Date Smoking Tobacco: Never Smokeless Tobacco: Never Sex and Gender Information Value Date Recorded Sex Assigned at Not on file Gender Identity Not on file Sexual Orientation Not on file Last Filed Vital Signs Vital Sign Reading Time Taken Comments Blood Pressure 143/97 12/02/2012 3:03 PM EDT Pulse 93 12/02/2012 3:03 PM EDT Temperature - - Respiratory Rate - - Oxygen Saturation - - Inhaled Oxygen Concentration - - Weight 104.2 kg (229 lb 12.8 oz) 12/02/2012 3:03 PM EDT Height - - Body Mass Index - - Plan of Treatment Health Maintenance Due Date Last Done Comments CT Colonography 1965 Colonoscopy 1965 Colorectal Cancer Screening 1965 FIT DNA 1965 FIT 1965 Sigmoidoscopy (10 year) with FIT yearly 1965 Sigmoidoscopy 1965 HIV screen 07/18/1981 Hepatitis C Screening 07/18/1981 Lipid Screening 07/18/1981 Tdap adult 07/18/1982 Tetanus vaccine 07/18/1982 Zoster vaccine (1 of 2) 07/18/2013 Advance Directive 07/18/2018 Covid-19 Vaccine (1 - 2022-24 season) 2022 Influenza (Flu) vaccine (1 o f 1 - Influenza standard series) 10/11/2023 12/02/2012 Care Teams Credit Card Associate Relationship Specialty Start Date End Date Claudia Johnson APRN [facility] [address] [place] [address] PCP - General 01/01/10
--- OUTSIDE RECORDS SUMMARY | 2023-09-16 03:52 | XMS_ITS | Encounter Summary ---
Author Organization [facility] Address [address] [place] [address] Care Team Providers Care Preparatory Technician Name Role Phone Unknown, Provider Primary Care Provider [phone] Encounter Details Date Type Department Care Team ([facility] st Contact Info) Description 07/23/2009 Results Only [facility] Laboratory Services - [facility] ([facility]) [address], [place] [address] Jake Vasquez MD [address] [place] [address] Social History Tobacco Use Types Packs/Day Years Used Date Smoking Tobacco: Never Assessed Sex and Gender Information Value Date Recorded Sex Assigned at Not on file Gender Identity Not on file Sexual Orientation Not on file documented as of this encounter Plan of Treatment Not on file documented as of this encounter Procedures Procedure Name Priority Date/Time Associated Diagnosis Comments SURGICAL PATHOLOGY Routine 07/23/2009 0:00 EDT documented in this encounter Results * SURGICAL PATHOLOGY (07/23/2009 0:00 EDT) Pathology Report: SURGICAL PATHOLOGY REPORT ? Reports generated via electronic interface contain original data; ? however they are lacking the format of the original report. ? Caution should be taken when reading/interpreti ng unformatted reports. ? Name: ? MANDO SNYDER ? Accession #: ? [id number] ? : ? 1965 (Age: 44) ??M ? Collect Date: ? 07/23/2009 ? Location: ? [facility] ? Receive Date: ? 07/23/2009 ? Provider: JAKE VASQUEZ MD ? Copy to: ELISA W [employer] RESEARCH ASSOCIATE QUALITY CONTROL QC ? Final Pathologic Diagnosis: ? A. ?Colon, sigmoid, polyp, biopsy: ? 1. ?Hyperplastic polyp. ? B. ?Rectum, polyp, biopsy: ? 1. ?Leiomyoma. ? Document reviewed and electronically signed by: ? VIKRAM POLANCO MD ? Report ??Date: 07/26/2009 09:20 ? By the signature above, the attending physician certifies that he/she has ? personally conducted a gross and/or microscopic examination of the described ? specimens and rendered or confirmed the above diagnosis. ? Specimen(s) Received: ? A. ?Sigmoid polyp 40 cm ? B. ? Rectal polyp ? Clinical History: ? Rectal bleeding ? Gross Description: ? Received in [facility] labelled Mando Snyder and sigmoid polyp 40 cm is a sanchez-pink, polypoid tissue measuring 0.2 x 0.2 x 0.2 cm. ??The specimen is ?? submitted entirely as (A). ? Received in [facility] labelled Mando Synder and rectal polyp are two ? sanchez-pink tissues measuring 0.2 x 0.2 x 0.2 cm and 0.3 x 0.2 x 0.2 cm. ??The ? specimens are submitted entirely as (B). ??(Sheri De León/garrett ? End of Report ? [facility] 07/23/2009 07/23/2009 8:1 5 EDT Jake Vasquez MD PATHOLOGY ORDERABLE S [facility] [address] [place] [address] documented in this encounter Visit Diagnoses Not on filedocumented in this encounter Care Teams Preparatory Technician Relationship Specialty Start Date End Date Unknown, Provider, PCP - General 07/23/09 documented as of this encounter
--- OUTSIDE RECORDS SUMMARY | 2023-09-16 03:52 | XMS_ITS | Clinical Summary ---
Author Organization [facility] Address [address] [place] [address] Care Team Providers Care Wireless Cellular Technician Name Role Phone Unknown, Provider Primary Care Provider [phone] Social History Tobacco Use Types Packs/Day Years Used Date Smoking Tobacco: Never Assessed Sex and Gender Information Value Date Recorded Sex Assigned at Not on file Gender Identity Not on file Sexual Orientation Not on file Plan of Treatment Health Maintenance Due Date Last Done Comments Hepatitis C Screen 1965 Hepatitis B Vaccine (1 of 3 - 19+ 3-dose series) 07/18 COVID-19 Vaccine ( season) 2022 Care Teams Wireless Cellular Technician Relationship Specialty Start Date End Date Unknown, Provider, PCP - General 07/23/09
--- OUTSIDE RECORDS SUMMARY | 2023-09-16 03:52 | XMS_ITS | Referral Summary ---
Author Organization [facility] Address [address] [place] [address] Care Team Providers Care Assistant Construction Superintendent Name Role Phone Unknown, Provider Primary Care Provider [phone] Social History Tobacco Use Types Packs/Day Years Used Date Smoking Tobacco: Never Assessed Sex and Gender Information Value Date Recorded Sex Assigned at Not on file Gender Identity Not on file Sexual Orientation Not on file Plan of Treatment Not on file Care Teams Assistant Construction Superintendent Relationship Specialty Start Date End Date Unknown, ProviderMD PCP - General 07/23/09
[2023-09-16 15:14] LABS: Anion Gap 9.7 mmol/L (3-11); BUN 13 mg/dL (7-18); CO2 26.3 mmol/L (21.0-32.0); CREATININE 1.1 mg/dL (0.70-1.30); Calcium 8.8 mg/dL (8.5-10.1); Chloride 107 mmol/L (98-107); Estimated GFR 76.85 (mL/min/1.73m2); Glucose 167 mg/dL (74-106); Potassium 4.1 mmol/L (3.5-5.1); Sodium 143 mmol/L (136-145)
[2023-09-16 15:33] LABS: COMMENT (LAB VIEW ONLY) 205.66 mg/dL
[2023-09-16 15:45] LABS: Microalb ug/mg Crea 409.4 ug/mg Cr
[2023-09-17 11:49] LABS: Hemoglobin A1C 6.9 % (<5.7)
== END 2023-09-16 03:51 | disposition home or self-care (01) ==
LOC: LBO 03:50
PROVIDERS: PCP Nurse Practitioner Family; Visit Provider Internal Medicine Endocrinology, Diabetes & Metabolism
DX: E11.65 Type 2 diabetes mellitus with hyperglycemia (principal); H35.00 Unspecified background retinopathy; N52.9 Male erectile dysfunction, unspecified; E78.5 Hyperlipidemia, unspecified
CPT/HCPCS: 36415; 80048; 82043; 82570; 83036

== ENCOUNTER 2024-01-12 12:41 | Outpatient (CLI) | payer BC, SELFPAY ==
[2024-01-12 13:11] LABS: Anion Gap 8.2 mmol/L (3-11); BUN 15 mg/dL (7-18); CO2 28.8 mmol/L (21.0-32.0); CREATININE 1.1 mg/dL (0.70-1.30); Chloride 109 mmol/L (98-107); Estimated GFR 76.85 (mL/min/1.73m2); Glucose 191 mg/dL (74-106); Potassium 4.6 mmol/L (3.5-5.1); Sodium 146 mmol/L (136-145)
[2024-01-12 13:12] LABS: COMMENT (LAB VIEW ONLY) 93.23 mg/dL; Microalb ug/mg Crea 391.5 ug/mg Cr
[2024-01-12 13:16] LABS: Hemoglobin A1C 6.9 % (<5.7)
== END 2024-01-12 12:42 | disposition home or self-care (01) ==
LOC: LBO 12:42
PROVIDERS: PCP Nurse Practitioner Family; Visit Provider Internal Medicine Endocrinology, Diabetes & Metabolism
DX: E11.65 Type 2 diabetes mellitus with hyperglycemia (principal); H35.00 Unspecified background retinopathy; N52.9 Male erectile dysfunction, unspecified; E78.5 Hyperlipidemia, unspecified; E11.21 Type 2 diabetes mellitus with diabetic nephropathy
CPT/HCPCS: 36415; 80048; 82043; 82570; 83036

== ENCOUNTER 2024-03-30 01:30 | Outpatient (CLI) | payer BC, SELFPAY ==
--- NOTE | 2024-03-30 | DI.RAD_ITS ---
Exam(s) XR SHOULDER RT COMPLETE 2+V EXAM: XR SHOULDER RT COMPLETE 2+V CLINICAL HISTORY: STRAIN ROTATOR CUFF OF SHOULDER,S76,011A,CHRONIC RT SHOULDER PAIN,S/P. TECHNIQUE: 2D digital imaging was performed of the right shoulder. Five images were obtained. AP, Grashey, Y-view and axillary views were obtained. COMPARISON: No exams were available for comparison FINDINGS: BONES: No acute fracture is present. No bony destructive lesion is seen. JOINTS: No dislocation present. There is a small spur at the inferior aspect of the acromion at the a cromioclavicular joint. The glenohumeral joint is well maintained. SOFT TISSUE: Normal. IMPRESSION: Small inferior acromial spur. DATA REPOSITORY: RADIATION DOSE DELIVERED:
--- NOTE | 2024-03-30 | DI.RAD_ITS ---
Exam(s) XR HIP PELVIS ADULT BL EXAM: XR HIP PELVIS ADULT BL CLINICAL HISTORY: STRAIN OF FLEXOR MUSCLE,RT HIP PAIN,M25.551,LT HIP PAIN, M25.552. TECHNIQUE: 2D digital imaging was performed of the pelvis and bilateral hips. Five images were obta ined. AP pelvis and lateral views of both hips were obtained. COMPARISON: CT ABD PELVIS WITH CONTRAST from 08/03/2009 FINDINGS: BONES: No acute fracture is present. No bony destructive lesion is seen. JOINTS: No dislocation present. There is prominence of the superior acetabuli bilaterally which can b e seen with PITA. There is also mild narrowing of the superior joint space of the hips, left greater than right. The sacroiliac joints and symphysis pubis are unremarkable. SOFT TISSUE: Normal. IMPRESSION: Prominence of the acetabuli bilaterally raising the question of PITA. No acute abnormality. DATA REPOSITORY: RADIATION DOSE DELIVERED:
== END 2024-03-30 01:50 ==
LOC: DI 01:30
PROVIDERS: PCP Nurse Practitioner Family; Visit Provider Nurse Practitioner Family
DX: M25.711 Osteophyte, right shoulder (principal); M25.552 Pain in left hip
CPT/HCPCS: 73521; 73030

== ENCOUNTER 2024-05-09 12:38 | Outpatient (CLI) | payer BC, SELFPAY ==
[2024-05-09 12:49] LABS: Hemoglobin A1C 6.5 % (<5.7)
[2024-05-09 13:08] LABS: Anion Gap 6.2 mmol/L (3-11); BUN 19 mg/dL (7-18); CO2 31.8 mmol/L (21.0-32.0); Calcium 9.6 mg/dL (8.5-10.1); Chloride 106 mmol/L (98-107); Estimated GFR 86.16 (mL/min/1.73m2); Glucose 129 mg/dL (74-106); Potassium 4.2 mmol/L (3.5-5.1); Sodium 144 mmol/L (136-145)
== END 2024-05-09 12:39 | disposition home or self-care (01) ==
LOC: LBO 12:39
PROVIDERS: PCP Nurse Practitioner Family; Visit Provider Internal Medicine Endocrinology, Diabetes & Metabolism
DX: E11.65 Type 2 diabetes mellitus with hyperglycemia (principal); E11.21 Type 2 diabetes mellitus with diabetic nephropathy; H35.00 Unspecified background retinopathy; N52.9 Male erectile dysfunction, unspecified; E78.9 Disorder of lipoprotein metabolism, unspecified
CPT/HCPCS: 36415; 80048; 83036

== ENCOUNTER 2024-06-20 01:56 | Outpatient (CLI) | payer BC, SELFPAY ==
--- NOTE | 2024-06-20 08:15 | DI.MRI_ITS ---
Exam(s) MR UPPER JOINT RT WO EXAM: MR UPPER JOINT RT WO CLINICAL HISTORY: R SHOULDER STIFFNESS,adhesive capsulitis,m75.101. TECHNIQUE: Multiplanar multisequence MRI was performed. COMPARISON: CR XR SHOULDER RT COMPLETE 2+V from 03/30/2024 FINDINGS: The examination is limited due to patient motion artifact. BONES: There is no fracture or contusion pattern. There is a probable enchondroma seen in the proxima l metaphysis of the humerus. JOINTS: The acromioclavicular joint is normal. The glenohumeral joint is normal. No significant joint effusion. TENDONS: Supraspinatus: Mild tendinosis of the supraspinatus. No evidence of a tear. Infraspinatus: Unremarkable. Subscapularis: Unremarkable. Teres Minor: Unremarkable. Biceps and [place]: There is fluid seen around the biceps tendon which may represent a tenosynovitis. MUSCLES: Unremarkable. GLENOID LABRUM: Unremarkable on this noncontrast examination. SOFT TISSUES: Unremarkable. LIGAMENTS: Unremarkable. OTHER: Subacromial and subdeltoid bursae are unremarkable. IMPRESSION: 1. Biceps tenosynovitis. 2. No evidence of a rotator cuff tear. 3. No evidence of a labral tear on this noncontrast examination. DATA REPOSITORY:
== END 2024-06-20 02:16 ==
LOC: DI 01:56
PROVIDERS: PCP Nurse Practitioner Family; Visit Provider Student in an Organized Health Care Education/Training Program
DX: M75.01 Adhesive capsulitis of right shoulder (principal)
CPT/HCPCS: 73221

== ENCOUNTER 2024-06-30 10:23 | Day surgery (SDC) | payer BC, SELFPAY ==
[2024-06-30] VITALS (16 sets, daily range): BP systolic 147–172; BP diastolic 85–96; PULSE 61–88; RESP 14–29; TEMP 36.2–36.9; O2SAT 96–100; BMI 29.2
--- NOTE | 2024-06-30 07:36 | W.PM.OP ---
Operative Note Operative Note PRE-OP DIAGNOSIS: Right shoulder adhesive capsulitis POST-OP DIAGNOSIS: same PROCEDURE: Right shoulder manipulation under anesthesia, CPT# 39481 SURGEON: Ramon Bourne AERONAUTICAL ENGINEERING PROFESSOR: None None ANESTHESIA TYPE: General:No Airway and Primary Nerve Block Refer to Anesthesia Record COMPLICATIONS: None Patient's condition: stable Indications: Please see complete medical record for details. Procedure Description: In the operating room, general anesthesia was induced. The patient was positioned supine on the stretcher. Bony prominences were padded. Preoperative antibiotics were omitted. The correct patient, procedure, and site of procedure were all verified prior to beginning. The right shoulder was examined under anesthesia. Range of motion was significantly stiff with maybe 10 degrees of external rotation at 90 degrees forward elevation of relatively firm endpoints. Using a short lever arm and careful steady pressure forward elevation, external rotation at the side, external and internal rotation at 90 degrees abduction, and abduction were restored and confirmed to be symmetrical to the contralateral side. Releases were done going into forward elevation gradually and gently and following forward elevation release majority of the motion was restored with some stretching and more minor releases felt across the body adduction and external rotation. All terminal range of motion endpoints were reinforced numerous times. Post manipulation, there were no significant mechanical symptoms or instability. The patient awoke from anesthesia without complication and was transferred to the recovery room in a stable condition. Date of Procedure: 06/30/24
[2024-06-30] MEDS: Lactated Ringers 1,000 ML 30 ML IV (10:55)
--- NOTE | 2024-06-30 11:02 | W.ANESPRE ---
General Info Date of Service Date Performed: 06/30/24 Height: 5 ft 10 in Weight: 92.5 kg Body Mass Index (BMI): 29.2 Surgical Procedure: Operation Date: 06/30/24 11:55 Proposed Procedure Side Surgeon p Shoulder Manipulation Right Ramon Bourne MD Actual Procedure Side Surgeon p Shoulder Manipulation Right Ramon Bourne MD Pre-Op Diagnosis Post-Op Diagnosis Adhesive capsulitis of right shoulder Meds Allergies and Home Medications Allergies Allergy/AdvReac Type Severity Reaction Status Date / Time dust mites Allergy Unknown Other (See Uncoded 06/30/24 10:45 Comment) seasonal allergies Allergy Unknown Other (See Uncoded 06/30/24 10:45 Comment) Home Medication ?Medication ?Instructions ?Recorded amlodipine 2.5 mg tablet 2.5 mg PO BID 11/24/17 aspirin 81 mg tablet,delayed 81 mg PO DAILY 11/24/17 release (Adult Aspirin Regimen) atorvastatin 10 mg tablet (Lipitor) 20 mg PO DAILY 11/24/17 hydrochlorothiazide 12.5 mg capsule 12.5 mg PO DAILY 11/24/17 ramipril 10 mg capsule 10 mg PO BID 11/24/17 insulin degludec 75 unit subcut HS 05/28/22 insulin lispro 12 sliding scale dose subcut 05/28/22 DIRECTED dapagliflozin propanediol 5 mg 5 mg PO DAILY 04/21/24 tablet (Farxiga) tirzepatide 7.5 mg/0.5 mL 7.5 mg subcut QWEEK 04/21/24 subcutaneous pen injector (Darlene) naproxen 250 mg tablet 250 - 500 mg (1 - 2 x 250 mg) PO 06/30/24 BID PRN Moderate pain #40 tabs oxycodone 5 mg tablet 5 - 10 mg (1 - 2 x 5 mg) PO Q4H 06/30/24 PRN Moderate to severe pain #18 tabs Current Visit Medications: Current Medications Generic Name Dose Route Start Last Admin Trade Name Freq PRN Reason Stop Dose Admin Ringer's Solution 1,000 mls @ 30 mls/hr 06/30/24 06:00 IV 06/30/24 23:59 [facility] IV Miscellaneous Supplies 1 each 06/30/24 06:00 Iv Access IV 06/30/24 23:59 DIRECTED [facility] Oxycodone HCl 0 mg 06/30/24 07:20 Oxycodone 5 Mg Tab PO 07/30/24 07:19 Q3H PRN PRN Pain Sodium Chloride 0 ml 06/30/24 06:00 Normal Saline Flush 10 Ml Syr IV 06/30/24 23:59 PRN PRN Sodium Chloride 0 ml 06/30/24 06:00 Normal Saline 10 Ml Vial IJ 06/30/24 23:59 DIRECTED PRN Sterile Water 0 ml 06/30/24 06:00 Water,Injection,Sterile 10 Ml Vial IJ 06/30/24 23:59 DIRECTED PRN PFSH Active Problems Active Problems: Problem Status Onset Code Adhesive capsulitis of right shoulder Acute M75.01 Bilateral hip joint arthritis Acute M16.0 Retinopathy Acute H35.00 Tubular adenoma Acute ~01/14/23 D36.9 Tinnitus of left ear Acute H93.12 Sensorineural hearing loss (SNHL) of both ears Acute H90.3 Medical History Medical History Facial nerve disorder Hyperlipidemia Benign hypertension Diabetes mellitus, type 2 Surgical History Surgical History H/O nasal septoplasty History of colonoscopy with polypectomy (~01/14/23) S/P colonoscopy (~07/23/09) only got to Transverse colon Hyperplastic polyp Leiomyoma of rectum Tobacco Smoking/Tobacco Use Status: Never Passive smoking exposure: No Alcohol Alcohol Intake: current Alcohol intake frequency: holidays/special occasions only Substance Use Substance use: Never Substance use type: does not use Vital Signs and Lab Results Vital Signs Most Recent Vital Signs in EMR: Most Recent Vital Signs Temp Pulse Resp BP Pulse Ox 36.4 C L 74 16 155/88 H 100 06/30/24 10:25 06/30/24 10:25 06/30/24 10:25 06/30/24 10:25 06/30/24 10:25 Lab Results Blood Type / Crossmatch: No Data to Display Complete Blood Count: No Data to Display Complete Metabolic Panel: No Data to Display Liver Function Panel: No Data to Display Coagulation Panel: No Data to Display Cardiac Panel: No Data to Display Arterial Blood Gas: No Data to Display Venous Blood Gas: No Data to Display Pancreas Panel: No Data to Display Thyroid Panel: No Data to Display Infectious Disease: No Data to Display Blood Cultures: No Data to Display Toxicology Panel: No Data to Display Anesthesia Assessment and Plan Anesthesia History Personal History: No History of Anesthesia Complications Family History: No Family History of Anesthesia Complications and Family History Unknown Exercise Tolerance Exercise Tolerance: Metabolic Equivalents>4 Pertinent Negatives Pertinent Negatives: No Symptoms of GERD, No Major Cardiovascular Symptoms or Complaints, No Major Pulmonary Symptoms or Complaints and No History of CVA/TIA Cardiac & Pulmonary Exam Cardiac Exam: Normal S1/S2 Heart Sounds Pulmonary Exam: Clear Bilateral Breath Sounds Implantable Cardiac Device Does patient have a Pacemaker or an ICD?: No Airway Exam Known Difficult Airway: No Mallampati Class: 4 Mouth Opening: Narrow (< 3cm) Thyromental Distance: Greater than 3 cm Neck Range of Motion: Full ROM Neck Circumference: Normal Teeth Condition: Normal Dentition ASA Classification ASA Score: ASA 2 Emergency Case?: No NPO Status NPO Status: NPO Clears >2 hours, Solids >8 hours Anesthesia Plan Resuscitation Status: Full Code Anesthesia Technique: General Anesthesia Airway Planned: Awake Fiberoptic Pain Management: Surgeon and patient request nerve block Monitors Used: Standard Monitors and SedLine
--- NOTE | 2024-06-30 11:03 | PDOC.DSDIS_ITS ---
Date of service: 06/30/24 Discharge Plan Disposition Patient Disposition: Home Condition: Stable Discharge Details Attending Provider: Ramon Bourne Primary Care Provider: MAYA FOWLER Home Meds and New Rx's Prescriptions: New naproxen 250 mg tablet 250 - 500 mg PO BID PRN (Reason: Moderate pain) Qty: 40 0RF oxycodone 5 mg tablet 5 - 10 mg PO Q4H PRN (Reason: Moderate to severe pain) Qty: 18 0RF Continued amlodipine 2.5 mg tablet 2.5 mg PO BID aspirin [Adult Aspirin Regimen] 81 mg tablet,delayed release (DR/EC) 81 mg PO DAILY insulin degludec [Tresiba FlexTouch U-100] 75 unit subcut HS insulin lispro [Humalog U-100 Insulin] 12 sliding scale dose subcut DIRECTED Rx Instructions: Sliding scale per pt. states usually 12 units ramipril 10 mg capsule 10 mg PO BID Rx Instructions: qday atorvastatin [Lipitor] 10 mg tablet 20 mg PO DAILY Rx Instructions: qday hydrochlorothiazide 12.5 mg capsule 12.5 mg PO DAILY Rx Instructions: qday dapagliflozin propanediol [Farxiga] 5 mg tablet 5 mg PO DAILY Mounjaro 7.5 mg/0.5 mL pen injector 7.5 mg subcut QWEEK Discharge Instructions Additional Instructions: Surgery: Right shoulder manipulation under anesthesia 06/30/24 Activity: Encourage increasing range of motion. Perform daily stretching exercises. Resume physical therapy tomorrow. Prescriptions: Naproxen 250 mg take 1-2 every 12 hours with a meal as needed for moderate pain Oxycodone 5 mg take 1-2 every 4-6 hours as needed for severe pain You may use [id number] Tylenol (acetaminophen) as needed for mild pain. These pain medications may be taken all at once or in different combinations as needed. Also, recommend Colace (docusate) as a stool softener as surgery and pain medicine cause constipation. You may try [id number] diphenhydramine (Benadryl) 25-50 mg nightly as a sleep aid Dressings: None Follow-up: 10-[address] Bourne You may take off the leg compression stockings this evening at home. You may also leave them on a few days longer if you have a history of leg swelling or edema. Let us know right away if you develop any redness, drainage, fevers, chest pain, or trouble breathing. Do not drink alcohol or drive for at least 24 hours after anesthesia. Please call the office during business hours with any questions or concerns. Stand Alone Forms: Anesthesia Discharge Inst., Anes.Nerve Block Instructions, Colleen Camarillo ([facility]) Referrals: Ramon Bourne MD [ [facility] STAFF PHYSICIAN] - Discharge Orders Discharge Orders: Discharge Order (Routine); Ordered 06/30/24 Ordered By: Junior Nair DS: Diagnosis Discharge Diagnosis (1) Adhesive capsulitis of right shoulder: Status: Acute
--- NOTE | 2024-06-30 12:08 | W.ANESNERVE ---
Nerve Block Single Injection Procedure Date and Time Date Performed: 06/30/24 Procedure Start: 11:23 Location Where Procedure Performed Procedure Location: Day Surgery Unit Reason Performed: Postoperative Analgesia Requesting Provider: Ramon Bourne Timeout Performed Timeout Performed: Yes Monitoring Used ECG, Blood Pressure and SpO2 Sterility Sterility: Hand Hygiene, Surgical Cap, Surgical Mask, Sterile Gloves and Chlorhexidine Sedation Given During Procedure Sedation Given (Indicate Dose Given): Versed IV Dose:: 2mg Patient Mental Status Patient Mental Status: Sedate with meaningful communication Nerve Block 1st Nerve Block: Laterality: Right Block Type: Interscalene Ultrasound Image Saved?: Yes Needle / Catheter Used: 80mm SonoPlex II Local Anesthetic Bolus (Indicate Dose Given): Lidocaine used for local infiltration of skin, Injected in 3-5ml increments after negative blood aspiration, Bupivacaine 0.5% Dose:: 10mL and Exparel Dose:: 10mL Additives (Indicate Dose Given): None Ultrasound: Sterile probe cover and gel used Nerve Stimulator: Supplement to Ultrasound use and No twitch or parasthesia noted < 0.5 mA Paresthesia: None Procedure Tolerated: No Complications Procedure Outcome: Successful Performed By: Armani Page Supervised By: Cristela Kimble
--- NOTE | 2024-06-30 13:30 | W.ANESPOSTOP ---
Postoperative Evaluation Date, Time and Location Date Performed: 06/30/24 Time Performed: 12:45 Patient Location: Day Surgery Unit Vital Signs Most Recent Imported Vital Signs: Most Recent Vital Signs Temp Pulse Resp BP Pulse Ox 36.1 C L 74 16 149/92 H 95 06/30/24 13:23 06/30/24 13:23 06/30/24 13:23 06/30/24 13:23 06/30/24 13:23 Pain Score Most Recent Pain Score: Most Recent Pain Score Pain Level 7 06/30/24 13:23 Assessment Mental Status: Awake (Alert & Oriented to Patient Baseline) Airway and Respiratory Function: Patent airway with normal (patient baseline) respiratory exam Cardiovascular Function: Hemodynamically Stable Hydration Status: Adequately Hydrated Nausea & Vomiting: No Nausea or Vomiting Pain: Pain is tolerable per patient Peripheral Nerve Block: Regional nerve block not resolved at time of post operative discharge (Patient reports discomfort in his forearm)
== END 2024-06-30 13:35 | disposition home or self-care (01) ==
PROVIDERS: PCP Nurse Practitioner Family; Visit Provider Student in an Organized Health Care Education/Training Program
PROC: (CPT 23700; principal; 2024-06-30 11:45)
DX: M75.01 Adhesive capsulitis of right shoulder (principal)
CPT/HCPCS: 23700; 64415; J0131; J0330; J0665; J0666; J1100; J2003; J2250; J2405; J2704

== ENCOUNTER 2024-08-26 07:12 | Outpatient (CLI) | payer BC, SELFPAY ==
[2024-08-26 07:44] LABS: Hemoglobin A1C 6.2 % (<5.7)
[2024-08-26 08:05] LABS: ALT 24 U/L (16-63); AST 10 U/L (15-37); Albumin 4.2 g/dL (3.4-5.0); Alkaline Phosphatase 69 U/L (46-116); Anion Gap 7.4 mmol/L (3-11); BUN 17 mg/dL (7-18); Bilirubin, Total 1.1 mg/dL (0.2-1.0); CO2 29.6 mmol/L (21.0-32.0); Calcium 8.9 mg/dL (8.5-10.1); Calculated LDL 57 mg/dL (<100); Chloride 101 mmol/L (98-107); Cholesterol 113 mg/dL (<200); Estimated GFR 100.69 (mL/min/1.73m2); Glucose 140 mg/dL (74-106); HDL Cholesterol 40 mg/dL (>or=40); Potassium 4.7 mmol/L (3.5-5.1); Sodium 138 mmol/L (136-145); Total Protein 7.2 g/dL (6.4-8.2); Triglyceride 81 mg/dL (<150)
[2024-08-26 08:48] LABS: COMMENT (LAB VIEW ONLY) 139.83 mg/dL
[2024-08-26 08:49] LABS: Microalb ug/mg Crea 109.0 ug/mg Cr
== END 2024-08-26 07:13 | disposition home or self-care (01) ==
LOC: LBO 07:12
PROVIDERS: PCP Nurse Practitioner Family; Visit Provider Internal Medicine Endocrinology, Diabetes & Metabolism
DX: E11.9 Type 2 diabetes mellitus without complications (principal); E11.21 Type 2 diabetes mellitus with diabetic nephropathy; N52.9 Male erectile dysfunction, unspecified; H35.00 Unspecified background retinopathy; E78.9 Disorder of lipoprotein metabolism, unspecified
CPT/HCPCS: 36415; 80053; 80061; 82043; 82570; 83036

== ENCOUNTER 2025-01-09 10:34 | Outpatient (CLI) | payer BC, SELFPAY ==
[2025-01-09 10:24] LABS: Hemoglobin A1C 6.5 % (<5.7)
[2025-01-09 10:31] LABS: Anion Gap 7.2 mmol/L (3-11); BUN 25 mg/dL (9-23); CO2 28.8 mmol/L (20.0-31.0); Calcium 9.1 mg/dL (8.3-10.6); Chloride 107 mmol/L (98-107); Glucose 91 mg/dL (74-106); Potassium 4.9 mmol/L (3.5-5.1); Sodium 143 mmol/L (136-145)
[2025-01-09 10:44] LABS: Microalb ug/mg Crea 88.2 ug/mg Cr
== END 2025-01-09 10:35 | disposition home or self-care (01) ==
LOC: LBO 10:35
PROVIDERS: PCP Nurse Practitioner Family; Visit Provider Internal Medicine Endocrinology, Diabetes & Metabolism
DX: E11.9 Type 2 diabetes mellitus without complications (principal); H35.00 Unspecified background retinopathy; E11.21 Type 2 diabetes mellitus with diabetic nephropathy; N52.9 Male erectile dysfunction, unspecified; E78.9 Disorder of lipoprotein metabolism, unspecified
CPT/HCPCS: 36415; 80048; 82043; 82570; 83036